=== PATIENT | male | born 1950 | race Caucasian/White ===

== ENCOUNTER 2018-02-25 14:38 | Emergency (ER) | payer MEDICARE ==
[2018-02-25] MEDS ORDERED: NovoLOG Insulin SQ ONE ×2 (15:02→17:54)
[2018-02-25] MEDS ORDERED: Sodium Chloride 0.9% 1000 ML 1,000 ML IV STA ×3 (15:02→18:53)
[2018-02-25 15:10] VITALS: PULSE 86; O2SAT 97
[2018-02-25] MEDS ORDERED: Sodium Chloride 0.9% 1000 ML 1,000 ML ONE ×3 (15:38→19:01)
[2018-02-25] MEDS ORDERED: NovoLOG Insulin ONE ×2 (15:38→17:58)
[2018-02-25 15:41] LABS: BASOPHIL % 0.3 % (0.0-0.4); Basophil (Absolute #) 0.03 (0-0.4); Eosinophil % 0.1 % (0.00-5.0); Eosinophil (Absolute #) 0.01 (0-0.5); Granulocyte Absolute (ANC) 7.29 (1.4-6.9); Granulocytes % 79.9 % (36.0-66.0); Hematocrit 51.2 % (42-50); Hemoglobin 17.2 gm/dl (12.5-18.0); Lymphocyte (Absolute #) 1.27 (1.0-4.6); Lymphocytes % 13.9 % (24.0-44.0); Mean Corpuscular Hgb Concent. 33.6 g/dl (32-36); Mean Platelet Volume 11.4 fl (6-9.5); Monocyte (Absolute #) 0.53 (0.0-1.3); Monocytes % 5.8 % (0.0-12.0); Platelet Count 195 K/mm3 (150-450); Red Blood Count 6.02 M/mm3 (4.1-5.6); White Blood Count 9.1 K/mm3 (4.0-10.5)
[2018-02-25 15:46] LABS: Mean Corpuscular Hemoglobin 28.5 pg (26-32)
[2018-02-25 15:57] LABS: A-aADO2 23; ABG POTASSIUM 4.4 (3.5-5.1); ARTERIAL BLD GAS O2 SATURATION 96.2 % (95-100); ARTERIAL BLOOD GAS BASE EXCESS 1.1 (-2.0-2.0); ARTERIAL BLOOD GAS FIO2 21 %; ARTERIAL BLOOD GAS PCO2 44 mmHg (35-45); ARTERIAL BLOOD GAS PO2 72 mmHg (75-100); ARTERIAL BLOOD GAS pH 7.39 (7.35-7.45); CARBOXYHEMOGLOBIN 3.2 % THgb (0.0-6.9); HCO3- 26.6 (22-28); HGB O2 SAT 92.2 g/dF (94-100); Lactic Acid 4.3 (0.4-2.0); paO2 pAO1 0.76
[2018-02-25 15:58] LABS: ABG SITE RIGHT BRACHIAL; ALLEN TEST OK? YES
[2018-02-25 15:59] LABS: ALBUMIN 4.1 g/dL (3.5-5.0); ALKALINE PHOSPHATASE 159 U/L (38-126); ANION GAP 17.5 MEQ/L (5-15); BLOOD UREA NITROGEN 27 mg/dL (9-20); CHLORIDE 88 mmol/L (98-107); Calcium 9.1 mg/dL (8.4-10.2); Carbon Dioxide 30 mmol/L (22-30); Creatinine 1 0.83 mg/dL (0.66-1.25); Potassium 5.2 mmol/L (3.5-5.1); SGOT/AST 36 U/L (17-59); SGPT/ALT 26 U/L (0-50); SODIUM 130 mmol/L (137-145); Total Protein 7.6 g/dL (6.3-8.2)
[2018-02-25 16:10] LABS: Glucose 540 mg/dL (74-106)
--- NOTE | 2018-02-25 16:15 | XRAY ---
Indication: Short of breath. Hyperglycemia. Smoking history. Comparison: July 03, 2016. PA/lateral chest demonstrates stable right middle lobe atelectasis/scarring. No focal infiltrate, consolidation, or large effusion. Heart is not enlarged. Bony thorax intact again with mild osteopenia and remote-appearing inferior thoracic minimal compression deformities. Impression: Stable nonacute chest with chronic features.
[2018-02-25 16:24] LABS: Appearance CLEAR (CLEAR); Bilirubin NEGATIVE (NEGATIVE); Blood SMALL Ery/ul (0-5); Glucose >=500 mg/dL (NEGATIVE); Ketones NEGATIVE (NEGATIVE); Leukocyte Esterase NEGATIVE (NEGATIVE); Nitrite NEGATIVE (NEGATIVE); Protein,Urine Dip 100 (Negative); Specific Gravity 1.018 (1.005-1.025); Urobilinogen NEGATIVE mg/dL (0-1)
--- NOTE | 2018-02-25 17:38 | ERPHSYRPT ---
<TRAN SLADE - Last Filed: 02/25/18 19:48> - History of Present Illness Source: patient Exam Limitations: no limitations Patient Subjective Stated Complaint: pt poor historian, handed nurse a list of medications but does not know what they are for. complaining of dry mouth, increased thirst. states he drank a mountain dew on the way here. no changes with urination. c/o back and leg pain but states its chronic. Triage Nursing Assessment: pt in motorized w/c, transferred self to bed. tongue appears dry, no abnormal fruity smell to breath. c/o vision is blurry and dry mouth. can't seem to get enough to drink. resp easy, lungs clear. blood sugar 587. skin pink, warm and dry. Timing/Duration: today Severity: moderate Modifying Factors: Improves With: nothing Associated Symptoms: other (As described in HPI) Hx Tetanus, Diphtheria Vaccination/Date Given: No Hx Influenza Vaccination/Date Given: Yes Hx Pneumococcal Vaccination/Date Given: Yes Immunizations Up to Date: Yes <BRANDT MATHIS - Last Filed: 04/02/18 18:58> - History of Present Illness Time Seen by Provider: 02/25/18 15:00 Physician History: Pt is a 68 y/o male with h/o DM II. He woke up this AM and checked his BG that was in the 350 range. Pt states, he had very dry mouth and had polydipsia. Pt had a mountain dew can. Pt states, his BG in the AMs is in the range of 280s. he is injecting Insulin three times daily, but does not remember if he has any basal insulin. Pt is very poor historian, and is non compliant. He states "I am doing many things that I am not suppose to". Pt denies F/C/S. No SOB or wheeze. he does have polydipsia and polyuria. (BRANDT MATHIS) Allergies/Adverse Reactions: atorvastatin calcium [From Lipitor] Adverse Reaction (Severe, Verified 02/14/15 12:40) Joint Aches Home Medications: Duloxetine HCl 30 mg [Cymbalta 30 MG Capsule] 60 mg PO DAILY 02/14/15 [ History] Furosemide [Lasix] 40 mg PO BID 02/14/15 [History] Gabapentin 400 mg [Neurontin 400 MG] 400 mg PO TID 02/14/15 [History] Glucosam/Chondr/Collagn/Hyalur [Glucosamine & Chondroitin Cap] 1 each PO DAILY 02/14/15 [History] Methadone HCl 10 mg [DOLOPHINE 10MG Tablet] 30 mg PO TID 02/14/15 [History ] Potassium Chloride 10 Meq Tab* [Klor Con 10 MEQ] 10 meq PO DAILY 02/14/15 [ History] Tamsulosin HCl 0.4 mg [Flomax 0.4 MG] 0.4 mg PO DAILY 02/14/15 [History] Insulin Aspart [NovoLOG Insulin] 1 units SQ TIDWM 02/25/18 [History] Rivaroxaban 10 mg Tablet [Xarelto 10 mg Tablet] 10 mg PO DAILY 02/25/18 [ History] - Review of Systems Constitutional: No Fever, No Chills Eyes: No Symptoms Ears, Nose, & Throat: No Symptoms Respiratory: No Cough, No Dyspnea Cardiac: No Chest Pain, No Edema, No Syncope Abdominal/Gastrointestinal: No Abdominal Pain, No Nausea, No Vomiting, No Diarrhea Genitourinary Symptoms: Frequency Musculoskeletal: No Back Pain, No Neck Pain Skin: No Rash Neurological: No Dizziness, No Focal Weakness, No Sensory Changes Endocrine: Polyuria, Polydipsia All Other Systems: Reviewed and Negative <BRANDT MATHIS - Last Filed: 04/02/18 18:58> - Past Medical History Pertinent Past Medical History: Yes Neurological History: No Pertinent History ENT History: No Pertinent History Cardiac History: No Pertinent History Respiratory History: No Pertinent History Endocrine Medical History: Diabetes Type II Musculoskeletal History: Arthritis GI Medical History: No Pertinent History History: No Pertinent History Psycho-Social History: No Pertinent History Male Reproductive Disorders: Prostate Problems - Past Surgical History Past Surgical History: Yes Neuro Surgical History: No Pertinent History Cardiac: No Pertinent History Respiratory: No Pertinent History Gastrointestinal: No Pertinent History Genitourinary: No Pertinent History Musculoskeletal: Orthopedic Surgery Male Surgical History: No Pertinent History Other Surgical History: L LEG SURGERY. R ARM SURGERY - Social History Smoking Status: Current some day smoker How long have you smoked: 43 Exposure to second hand smoke: No Drug Use: none Patient Lives Alone: No <BRANDT MATHIS - Last Filed: 04/02/18 18:58> - Physical Exam General Appearance: no apparent distress, alert, other (Pt is poor historian and somewhat confused.) Eye Exam: PERRL/EOMI, eyes nml inspection Ears, Nose, Throat Exam: normal ENT inspection, TMs normal, pharynx normal, moist mucous membranes Neck Exam: normal inspection, non-tender, supple, full range of motion Respiratory Exam: normal breath sounds, lungs clear, No respiratory distress Cardiovascular Exam: regular rate/rhythm, normal heart sounds, normal peripheral pulses Gastrointestinal/Abdomen Exam: soft, normal bowel sounds, No tenderness, No mass Back Exam: normal inspection, normal range of motion, No CVA tenderness, No vertebral tenderness Extremity Exam: normal inspection, normal range of motion, pelvis stable Neurologic Exam: alert, oriented x 3, cooperative, normal mood/affect, nml cerebellar function, nml station & gait, sensation nml, No motor deficits Skin Exam: normal color, warm, dry, No rash Lymphatic Exam: No adenopathy SpO2: 97 Oxygen Delivery: Room Air <BRANDT MATHIS - Last Filed: 04/02/18 18:58> - Nursing Vital Signs Nursing Vital Signs: Initial Vital Signs Temperature 99.5 F 02/25/18 14:39 Pulse Rate 86 02/25/18 14:39 Respiratory Rate 18 02/25/18 14:39 Blood Pressure 128/112 02/25/18 14:39 O2 Sat by Pulse Oximetry 97 02/25/18 14:39 Pain Scale Pain Intensity 0 - Course EKG Interpreted by Me: RATE (60 bpm), Sinus Rhythm, Left [place] Deviation, Other ( EKG: Sinus rhythm, 60 bpm, left axis deviation, no acute ST or T wave changes) <TRAN SLADE - Last Filed: 02/25/18 19:48> - Radiology Exams Chest X-ray Interpretation: Reviewed by me, No Pneumonia, No Pneumothorax (Stable non acute chest with chronic features) <BRANDT MATHIS - Last Filed: 04/02/18 18:58> Ordered Tests: Medication Summary Discontinued Medications Generic Name Dose Route Start Last Admin Trade Name Freq PRN Reason Stop Dose Admin Sodium Chloride 1,000 mls @ 999 mls/hr 02/25/18 15:02 02/25/18 15:41 Sodium Chloride 0.9% 1000 Ml IV 02/25/18 16:02 999 mls/hr .Q1H1M STA Administration Sodium Chloride Confirm 02/25/18 15:38 Sodium Chloride 0.9% 1000 Ml Administered 02/25/18 15:39 Dose 1,000 mls @ ud .ROUTE .STK-MED ONE Sodium Chloride Confirm 02/25/18 16:52 Sodium Chloride 0.9% 1000 Ml Administered 02/25/18 16:53 Dose 1,000 mls @ ud .ROUTE .STK-MED ONE Sodium Chloride 1,000 mls @ 999 mls/hr 02/25/18 16:57 02/25/18 16:58 Sodium Chloride 0.9% 1000 Ml IV 02/25/18 17:57 999 mls/hr .Q1H1M STA Administration Sodium Chloride 1,000 mls @ 999 mls/hr 02/25/18 18:53 02/25/18 19:02 Sodium Chloride 0.9% 1000 Ml IV 02/25/18 19:53 999 mls/hr .Q1H1M STA Administration Sodium Chloride Confirm 02/25/18 19:01 Sodium Chloride 0.9% 1000 Ml Administered 02/25/18 19:02 Dose 1,000 mls @ ud .ROUTE .STK-MED ONE Insulin Aspart 10 unit 02/25/18 15:02 02/25/18 15:41 Novolog Insulin SQ 02/25/18 15:03 10 unit STAT ONE Administration Insulin Aspart Confirm 02/25/18 15:38 Novolog Insulin Administered 02/25/18 15:39 Dose 10 unit .ROUTE .STK-MED ONE Insulin Aspart 7 unit 02/25/18 17:54 02/25/18 18:01 Novolog Insulin SQ 02/25/18 17:55 7 unit STAT ONE Administration Insulin Aspart Confirm 02/25/18 17:58 Novolog Insulin Administered 02/25/18 17:59 Dose 7 unit .ROUTE .STK-MED ONE Lab/Rad Data: Laboratory Result Diagrams 02/25/18 15:15 02/25/18 15:15 Laboratory Results 02/25/18 02/25/18 02/25/18 Range/Units 19:16 16:19 15:15 WBC (4.0-10.5) K/mm3 RBC (4.1-5.6) M/mm3 Hgb (12.5-18.0) gm/dl Hct (42-50) % MCV (78-100) fl MCH (26-32) pg MCHC (32-36) g/dl RDW (11.5-14.0) % Plt Count (150-450) K/mm3 MPV (6-9.5) fl Gran % (36.0-66.0) % Eos # (Auto) (0-0.5) Absolute Lymphs (auto) (1.0-4.6) Absolute Monos (auto) (0.0-1.3) Lymphocytes % (24.0-44.0) % Monocytes % (0.0-12.0) % Eosinophils % (0.00-5.0) % Basophils % (0.0-0.4) % Absolute Granulocytes (1.4-6.9) Basophils # (0-0.4) Puncture Site pCO2 (35-45) mmHg pO2 (75-100) mmHg Base Excess (-2.0-2.0) O2 Saturation (94-100) g/dF ABG pH (7.35-7.45) ABG HCO3 (22-28) ABG O2 Sat (Measured) (95-100) % Andres Test A-a Gradient a/A Ratio Hemoglobin Carboxyhemoglobin (0.0-6.9) % THgb Methemoglobin (1.4-1.5) % Potassium 5.2 H (3.5-5.1) Temperature C POC O2 Flow Rate % Sodium 130 L (137-145) mmol/L Chloride 88 L (98-107) mmol/L Carbon Dioxide 30 (22-30) mmol/L Anion Gap 17.5 H (5-15) MEQ/L BUN 27 H (9-20) mg/dL Creatinine 0.83 (0.66-1.25) mg/dL Estimated GFR > 60.0 ML/MIN Glucose 540 H* (74-106) mg/dL Lactic Acid 2.0 (0.4-2.0) Calcium 9.1 (8.4-10.2) mg/dL Magnesium 2.2 (1.6-2.3) mg/dL Total Bilirubin 0.80 (0.2-1.3) mg/dL AST 36 (17-59) U/L ALT 26 (0-50) U/L Alkaline Phosphatase 159 H (38-126) U/L Serum Total Protein 7.6 (6.3-8.2) g/dL Albumin 4.1 (3.5-5.0) g/dL Urine Color STRAW (YELLOW) Urine Appearance CLEAR (CLEAR) Urine pH 6.0 (5-6) Ur Specific [place] 1.018 (1.005-1.025) Urine Protein 100 (Negative) Urine Ketones NEGATIVE (NEGATIVE) Urine Blood SMALL (0-5) Sanchez/ul Urine Nitrite NEGATIVE (NEGATIVE) Urine Bilirubin NEGATIVE (NEGATIVE) Urine Urobilinogen NEGATIVE (0-1) mg/dL Ur Leukocyte Esterase NEGATIVE (NEGATIVE) Urine WBC (Auto) 0-2 (0-5) /HPF Urine RBC (Auto) NONE (0-2) /HPF U Epithel Cells (Auto) NONE SEEN (FEW) /HPF Urine Mucus (Auto) SLIGHT (NEGATIVE) /HPF Urine Culture Reflexed NO (NO) Urine Glucose >=500 (NEGATIVE) mg/dL 02/25/18 02/25/18 Range/Units 15:15 15:02 WBC 9.1 (4.0-10.5) K/mm3 RBC 6.02 H (4.1-5.6) M/mm3 Hgb 17.2 (12.5-18.0) gm/dl Hct 51.2 H (42-50) % MCV 85.0 (78-100) fl MCH 28.5 (26-32) pg MCHC 33.6 (32-36) g/dl RDW 14.0 (11.5-14.0) % Plt Count 195 (150-450) K/mm3 MPV 11.4 H (6-9.5) fl Gran % 79.9 H (36.0-66.0) % Eos # (Auto) 0.01 (0-0.5) Absolute Lymphs (auto) 1.27 (1.0-4.6) Absolute Monos (auto) 0.53 (0.0-1.3) Lymphocytes % 13.9 L (24.0-44.0) % Monocytes % 5.8 (0.0-12.0) % Eosinophils % 0.1 (0.00-5.0) % Basophils % 0.3 (0.0-0.4) % Absolute Granulocytes 7.29 H (1.4-6.9) Basophils # 0.03 (0-0.4) Puncture Site RIGHT BRACHIAL pCO2 44 (35-45) mmHg pO2 72 L (75-100) mmHg Base Excess 1.1 (-2.0-2.0) O2 Saturation 92.2 L (94-100) g/dF ABG pH 7.39 (7.35-7.45) ABG HCO3 26.6 (22-28) ABG O2 Sat (Measured) 96.2 (95-100) % Andres Test YES A-a Gradient 23 a/A Ratio 0.76 Hemoglobin 17.0 Carboxyhemoglobin 3.2 (0.0-6.9) % THgb Methemoglobin 1.0 L (1.4-1.5) % Potassium 4.4 (3.5-5.1) Temperature 37.0 C POC O2 Flow Rate 21 % Sodium (137-145) mmol/L Chloride (98-107) mmol/L Carbon Dioxide (22-30) mmol/L Anion Gap (5-15) MEQ/L BUN (9-20) mg/dL Creatinine (0.66-1.25) mg/dL Estimated GFR ML/MIN Glucose (74-106) mg/dL Lactic Acid 4.3 H (0.4-2.0) Calcium (8.4-10.2) mg/dL Magnesium (1.6-2.3) mg/dL Total Bilirubin (0.2-1.3) mg/dL AST (17-59) U/L ALT (0-50) U/L Alkaline Phosphatase (38-126) U/L Serum Total Protein (6.3-8.2) g/dL Albumin (3.5-5.0) g/dL Urine Color (YELLOW) Urine Appearance (CLEAR) Urine pH (5-6) Ur Specific [place] (1.005-1.025) Urine Protein (Negative) Urine Ketones (NEGATIVE) Urine Blood (0-5) Sanchez/ul Urine Nitrite (NEGATIVE) Urine Bilirubin (NEGATIVE) Urine Urobilinogen (0-1) mg/dL Ur Leukocyte Esterase (NEGATIVE) Urine WBC (Auto) (0-5) /HPF Urine RBC (Auto) (0-2) /HPF U Epithel Cells (Auto) (FEW) /HPF Urine Mucus (Auto) (NEGATIVE) /HPF Urine Culture Reflexed (NO) Urine Glucose (NEGATIVE) mg/dL <TRAN SLADE - Last Filed: 02/25/18 19:48> - Progress Progress: improved <BRANDT MATHIS - Last Filed: 04/02/18 18:58> - Progress Progress Note: 02/25/18 19:48 This is a 68-year-old white male with history of diabetes type 2, arthritis, prostate problems he arrives with complaints that his blood sugars are high at home Patient apparently had a blood sugar around 350 drinking Mountain Dew and arrived with a blood sugar high her than 500. Patient states he's had a dry mouth lately he had some paresthesias of bilateral forearms. He did not have any speech difficulties saw and he was moving all extremities. Past medical history as noted above diabetes type 1, arthritis, prostate problems Past surgical history includes orthopedic surgery, leg surgery and arm surgery Physical examination well-developed well-nourished white male he is alert oriented 3. Head is atraumatic normocephalic. Eyes PERRLA EOMI fundi are unremarkable. Ears TMs robbins intact bilaterally. Nose is clear. Throat is clear. Neck is supple. Lungs are clear. Heart regular rate rhythm without murmur. Abdomen soft nontender nondistended positive bowel sounds. Extremities full range of motion pulse equal symmetrical 2 over 4. Neuro patient alert oriented 3 cranial nerves II through XII are intact DTRs symmetrical 2 over [address] worker are equal and symmetrical 5 or 5. Sensation intact to all extremities. Movement intact to all extremities. GCS is 15. Labs patient's chemistry shows a sodium 1:30 potassium 5.2 glucose 88 bicarbonate 30 BUN 27 creatinine 0.83 glucose 540 Patient's initial lactate 4.3 it has decreased now to 2.0 CBC white count 9.1 hemoglobin 17.2 hematocrit 51.2 platelets 195 ABGs on arrival pH 7.39 PCO2 44 PO2 72 bicarbonate 26.6 saturation 96% Patient's chest x-ray: Stable nonacute chest with chronic features Patient's urinalysis negative ketones glucose greater than 500 specific gravity 1.018 pH 6.0 Patient has received 3 L of normal saline he has received a total of 17 him units of insulin coverage Blood sugar now to 26 patient is in no acute distress vitals are stable I have ordered an EKG on this patient which reads the sinus rhythm 60 bpm left axis deviation no acute ST or T wave changes. Patient is markedly improved blood pressures are stable patient is not ketotic. Patient's lactate is improved to 2. We'll go ahead and discharge patient. (TRAN SLADE) 02/25/18 19:04 Pt was turned over to Dr Slade. Improved, and will be d/c later. (BRANDT MATHIS) - Departure Time of Disposition: 19:54 Departure Disposition: Home Critical Care Time: No <TRAN SLADE - Last Filed: 02/25/18 19:48> <BRANDT MATHIS - Last Filed: 04/02/18 18:58> - Departure Clinical Impression: Hyperglycemia Condition: Fair Referrals: DOCTOR,NO FAMILY [Primary Care Provider] - Instructions: Hyperglycemia, Adult (DC) Additional Instructions: Return home. Monitor your blood sugars carefully tonight and continue to monitor next several days write them down. Follow-up with your family doctor. Return for acute distress or for severe symptoms.
[2018-02-25 18:55] VITALS: BP 151/81
== END 2018-02-25 20:13 | disposition home or self-care (01) ==
LOC: ED 14:38
DX: E11.65 Type 2 diabetes mellitus with hyperglycemia (principal); M19.90 Unspecified osteoarthritis, unspecified site; Z79.01 Long term (current) use of anticoagulants; Z79.899 Other long term (current) drug therapy; Z72.0 Tobacco use
CPT/HCPCS: 36000; 36415; 36600; 71046; 80053; 81001; 82375; 82803; 82962; 83605; 83735; 85025; 93005; 96360; 96361; 96372; 99285; A9270-GY

== ENCOUNTER 2019-01-29 15:43 | Emergency (ER) | payer MEDICARE ==
--- NOTE | 2019-01-29 18:45 | ERPHSYRPT ---
- History of Present Illness Time Seen by Provider: 01/29/19 18:30 Source: patient Exam Limitations: no limitations Patient Subjective Stated Complaint: pt here for pain to right hip for over 2 months now with no injury, pt has hx of chronic pain and has a pain pump. but he is currently out of hes methadone now for a week, Triage Nursing Assessment: pt alert, resp easy, skin w/d/p. pt was able to transfer from to bed without difficulty, no edema noted Physician History: 68 y/o white male with chronic right hip pain. pt has a dilaudid pain pump. pt has been out of his methadone for 4 to 5 days. pt has a pain specialist. unable to get in touch with them today. missed his last appt because he was too busy. pt denies any injury. Severity: moderate Associated Symptoms: denies symptoms, No nausea, No vomiting, No abdominal pain , No shortness of breath, No chest pain, No loss of appetite Allergies/Adverse Reactions: atorvastatin calcium [From Lipitor] Adverse Reaction (Severe, Verified 01/29/19 17:13) Joint Aches Home Medications: Duloxetine HCl 30 mg [Cymbalta 30 MG Capsule] 60 mg PO DAILY 02/14/15 [ History] Furosemide [Lasix] 40 mg PO BID 02/14/15 [History] Gabapentin 400 mg [Neurontin 400 MG] 400 mg PO TID 02/14/15 [History] Glucosam/Chondr/Collagn/Hyalur [Glucosamine & Chondroitin Cap] 1 each PO DAILY 02/14/15 [History] Methadone HCl 10 mg [DOLOPHINE 10MG Tablet] 30 mg PO TID 02/14/15 [History ] Potassium Chloride 10 Meq Tab* [Klor Con 10 MEQ] 10 meq PO DAILY 02/14/15 [ History] Tamsulosin HCl 0.4 mg [Flomax 0.4 MG] 0.4 mg PO DAILY 02/14/15 [History] Insulin Aspart [NovoLOG Insulin] 1 units SQ TIDWM 02/25/18 [History] Rivaroxaban 10 mg Tablet [Xarelto 10 mg Tablet] 10 mg PO DAILY 02/25/18 [ History] Hx Tetanus, Diphtheria Vaccination/Date Given: No Hx Influenza Vaccination/Date Given: No Hx Pneumococcal Vaccination/Date Given: Yes Immunizations Up to Date: Yes - Review of Systems Constitutional: No Symptoms Eyes: No Symptoms Ears, Nose, & Throat: No Symptoms Respiratory: No Symptoms Cardiac: No Symptoms Abdominal/Gastrointestinal: No Symptoms Genitourinary Symptoms: No Symptoms Musculoskeletal: Joint Pain (right hip) Skin: No Symptoms Neurological: No Symptoms Psychological: No Symptoms Endocrine: No Symptoms Hematologic/Lymphatic: No Symptoms Immunological/Allergic: No Symptoms All Other Systems: Reviewed and Negative - Past Medical History Pertinent Past Medical History: Yes Neurological History: No Pertinent History ENT History: No Pertinent History Cardiac History: No Pertinent History Respiratory History: No Pertinent History Endocrine Medical History: Diabetes Type II Musculoskeletal History: Arthritis, Degenerative Disk Disease GI Medical History: No Pertinent History History: No Pertinent History Psycho-Social History: No Pertinent History Male Reproductive Disorders: Prostate Problems Other Medical History: chronic pain with pain pump of dilaudid - Past Surgical History Past Surgical History: Yes Neuro Surgical History: No Pertinent History Cardiac: No Pertinent History Respiratory: No Pertinent History Gastrointestinal: No Pertinent History Genitourinary: No Pertinent History Musculoskeletal: Orthopedic Surgery Male Surgical History: No Pertinent History Other Surgical History: L LEG SURGERY. R ARM SURGERY - Social History Smoking Status: Current some day smoker How long have you smoked: 43 Exposure to second hand smoke: Yes Drug Use: none Patient Lives Alone: Yes - Nursing Vital Signs Nursing Vital Signs: Initial Vital Signs Temperature 97.9 F 01/29/19 17:06 Pulse Rate 78 01/29/19 17:06 Respiratory Rate 18 01/29/19 17:06 Blood Pressure 122/70 01/29/19 17:06 O2 Sat by Pulse Oximetry 98 01/29/19 17:06 Pain Scale Pain Intensity 10 - Physical Exam General Appearance: no apparent distress, alert, anxiety Eye Exam: PERRL/EOMI, eyes nml inspection Ears, Nose, Throat Exam: normal ENT inspection, moist mucous membranes Neck Exam: normal inspection, non-tender, supple, full range of motion Respiratory Exam: lungs clear, airway intact, No chest tenderness, No respiratory distress Gastrointestinal/Abdomen Exam: No tenderness Rectal Exam: not done Back Exam: normal inspection, No CVA tenderness, No vertebral tenderness Extremity Exam: normal inspection, normal range of motion, pelvis stable, tenderness (tenderness right hip) Neurologic Exam: alert, oriented x 3, cooperative, oncologist II-XII nml as tested Skin Exam: normal color, warm, dry Lymphatic Exam: No adenopathy SpO2 Interpretation: normal SpO2: 95 O2 Delivery: Room Air - Course Nursing assessment & vital signs reviewed: Yes Ordered Tests: Medication Summary Discontinued Medications Generic Name Dose Route Start Last Admin Trade Name Priscilla PRN Reason Stop Dose Admin Hydromorphone HCl 1 mg 01/29/19 18:46 01/29/19 19:00 Hydromorphone 1 Mg/Ml Ampule IM 01/29/19 18:47 1 mg STAT ONE Administration Hydromorphone HCl Confirm 01/29/19 18:56 Hydromorphone 1 Mg/Ml Ampule Administered 01/29/19 18:57 Dose 1 mg .ROUTE .STK-MED ONE Promethazine HCl 25 mg 01/29/19 18:46 01/29/19 19:01 Phenergan 25 Mg Inj IM 01/29/19 18:47 25 mg STAT ONE Administration Promethazine HCl Confirm 01/29/19 18:56 Phenergan 25 Mg Inj Administered 01/29/19 18:57 Dose 25 mg .ROUTE .STK-MED ONE - Progress Progress: unchanged Counseled pt/family regarding: diagnosis, need for follow-up - Departure Departure Disposition: Home Clinical Impression: Chronic hip pain, Has run out of medications Condition: Stable Critical Care Time: No Referrals: RIGOBERTO RUIZ [Primary Care Provider] - Additional Instructions: call your primary doctor and your pain specialist for further management
[2019-01-29] MEDS ORDERED: Phenergan 25 MG INJ IM ONE (18:46)
[2019-01-29] MEDS ORDERED: Hydromorphone 1 mg/ml Ampule IM ONE (18:46)
[2019-01-29] MEDS ORDERED: Hydromorphone 1 mg/ml Ampule ONE (18:56)
[2019-01-29] MEDS ORDERED: Phenergan 25 MG INJ ONE (18:56)
[2019-01-29 19:36] VITALS: BP 153/76; PULSE 64; O2SAT 98
== END 2019-01-29 19:36 | disposition home or self-care (01) ==
LOC: ED 15:43
DX: Z79.899 Other long term (current) drug therapy (principal); E11.9 Type 2 diabetes mellitus without complications; M19.90 Unspecified osteoarthritis, unspecified site; Z76.0 Encounter for issue of repeat prescription
CPT/HCPCS: 96372; 99284; J1170; J2550

== ENCOUNTER 2019-02-16 09:33 | Emergency (ER) | payer MEDICARE ==
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
[2019-02-16 10:25] VITALS: BP 99/50; PULSE 60; O2SAT 98
== END 2019-02-16 10:48 | disposition home or self-care (01) ==
LOC: ED 09:33
DX: S81.802A Unspecified open wound, left lower leg, initial encounter (principal); S81.801A Unspecified open wound, right lower leg, initial encounter; E11.9 Type 2 diabetes mellitus without complications; Z79.899 Other long term (current) drug therapy
CPT/HCPCS: 93922; 99283

== ENCOUNTER 2019-05-13 15:57 | Emergency (ER) | payer MEDICARE ==
--- NOTE | 2019-05-13 17:16 | ERPHSYRPT ---
- History of Present Illness Time Seen by Provider: 05/13/19 16:43 Source: patient Exam Limitations: no limitations Patient Subjective Stated Complaint: Pt was sent over by Dr. Ruiz, pt has been feeling sick for the past 4 days, fever and chills, no energy, excessive urination Triage Nursing Assessment: Pt arrived in the ER in his electric wheelchair, hypertensive, lungs clear, last bowel movement yesterday, last intake this morning, rates pain 8/10 (chronic back pain), missed his appt to fill up his pain pump due to being sick, Physician History: 69 years old male with history of hypertension, hyperlipidemia, diabetes mellitus, chronic pain syndrome with back pain/leg pain having pain pump, right lower extremity vascular disease with right lower leg ulcer for a few months presented in the ER with chief complaint of flulike symptoms for the last 4 days with low-grade fever and chills. He feels weak and tired with no energy to do his routine activities. He has loss of appetite. He's been feeling thirsty all the time and urinating a lot more than usual. Blood sugar has been staying high in the 300s. Patient has been feeling sick and this does be an appointment to fill his pain pump. Patient has difficulty in ambulation at his baseline and is wheelchair-bound. Denies any chest pain palpitations or has shortness of breath at times. No abdominal pain,, vomiting but has nausea. vancomycin Timing/Duration: day(s) (4), gradual onset, worse Severity: moderate Modifying Factors: Improves With: nothing Associated Symptoms: chills, fever, loss of appetite, malaise Allergies/Adverse Reactions: atorvastatin calcium [From Lipitor] Adverse Reaction (Severe, Verified 05/13/19 16:19) Joint Aches Home Medications: Duloxetine HCl 30 mg [Cymbalta 30 MG Capsule] 60 mg PO DAILY 02/14/15 [ History] Furosemide [Lasix] 40 mg PO BID 02/14/15 [History] Gabapentin 400 mg [Neurontin 400 MG] 400 mg PO TID 02/14/15 [History] Glucosam/Chondr/Collagn/Hyalur [Glucosamine & Chondroitin Cap] 1 each PO DAILY 02/14/15 [History] Potassium Chloride 10 Meq Tab* [Klor Con 10 MEQ] 10 meq PO DAILY 10/19/15 [ History] Tamsulosin HCl 0.4 mg [Flomax 0.4 MG] 0.4 mg PO DAILY 02/14/15 [History] Insulin Aspart [NovoLOG Insulin] 1 units SQ TIDWM 02/25/18 [History] Rivaroxaban 10 mg Tablet [Xarelto 10 mg Tablet] 10 mg PO DAILY 02/25/18 [ History] Hx Tetanus, Diphtheria Vaccination/Date Given: No Hx Influenza Vaccination/Date Given: No Hx Pneumococcal Vaccination/Date Given: Yes - Review of Systems Constitutional: Fever, Chills, Fatigue, Malaise, Weakness Eyes: No Symptoms Ears, Nose, & Throat: Throat Pain Respiratory: Cough Cardiac: No Symptoms Abdominal/Gastrointestinal: No Symptoms Genitourinary Symptoms: Frequency Musculoskeletal: Arthralgias, Back Pain, Joint Pain, Myalgias Skin: Rash, Other (ulcer leg) Neurological: Parasthesia, Sensory Changes, No Focal Weakness Psychological: No Symptoms Endocrine: No Symptoms Hematologic/Lymphatic: No Symptoms Immunological/Allergic: No Symptoms - Past Medical History Pertinent Past Medical History: Yes Neurological History: No Pertinent History ENT History: No Pertinent History Cardiac History: No Pertinent History Respiratory History: No Pertinent History Endocrine Medical History: Diabetes Type II Musculoskeletal History: Arthritis, Degenerative Disk Disease GI Medical History: No Pertinent History History: No Pertinent History Psycho-Social History: No Pertinent History Male Reproductive Disorders: Prostate Problems Other Medical History: chronic pain with pain pump of dilaudid - Past Surgical History Past Surgical History: Yes Neuro Surgical History: No Pertinent History Cardiac: No Pertinent History Respiratory: No Pertinent History Gastrointestinal: No Pertinent History Genitourinary: No Pertinent History Musculoskeletal: Orthopedic Surgery Male Surgical History: No Pertinent History Other Surgical History: L LEG SURGERY. R ARM SURGERY - Social History Smoking Status: Current every day smoker How long have you smoked: 43 Exposure to second hand smoke: Yes Drug Use: none Patient Lives Alone: Yes - Nursing Vital Signs Nursing Vital Signs: Initial Vital Signs Temperature 98.6 F 05/13/19 16:03 Pulse Rate 96 H 05/13/19 16:03 Blood Pressure 151/78 05/13/19 16:03 O2 Sat by Pulse Oximetry 94 L 05/13/19 16:03 Pain Scale Pain Intensity 7 - Physical Exam General Appearance: no apparent distress Eye Exam: PERRL/EOMI, eyes nml inspection Ears, Nose, Throat Exam: normal ENT inspection, pharyngeal erythema, tonsillar exudate Neck Exam: normal inspection, non-tender, supple, full range of motion Respiratory Exam: normal breath sounds, lungs clear, No chest tenderness Cardiovascular Exam: regular rate/rhythm, normal heart sounds Gastrointestinal/Abdomen Exam: soft, normal bowel sounds, No tenderness, No distention Back Exam: normal inspection, decreased range of motion, muscle spasm, point tenderness Extremity Exam: pelvis stable, parasthesia, limited range of motion, swelling, tenderness, other, No normal range of motion Neurologic Exam: alert, oriented x 3, cooperative, wire galvanizer II-XII nml as tested, No sensation nml Skin Exam: other ([id number] area of multiple deep ulcer with sloughing and erythema around with foul smelling. Swollen foot warm and tender to touch. Capillary refill greater than 3 seconds.) SpO2 Interpretation: normal SpO2: 94 O2 Delivery: Room Air - Course Nursing assessment & vital signs reviewed: Yes Ordered Tests: Active Orders 24 hr Category Date Time Status IV Insertion STAT Care 05/13/19 17:08 Active CHEST 1 VIEW (PORTABLE) Stat Exams 05/13/19 17:09 Taken BLOOD CULTURE Stat Lab 05/13/19 17:33 Received CBC W DIFF Stat Lab 05/13/19 17:33 Completed CMP Stat Lab 05/13/19 17:33 Completed LIPASE Stat Lab 05/13/19 17:33 Completed Lactic Acid Stat Lab 05/13/19 17:16 Results Manual Differential NC Stat Lab 05/13/19 17:33 Completed UA W/RFX UR CULTURE Stat Lab 05/13/19 17:09 Uncollected VENOUS BLOOD GAS Stat Lab 05/13/19 17:16 Completed Medication Summary Generic Name Dose Route Start Last Admin Trade Name Freq PRN Reason Stop Dose Admin Vancomycin HCl 250 mls @ 250 mls/hr 05/13/19 18:15 Vancomycin 1gm/ Ns 250ml IV 05/13/19 20:14 Q1H TITO Discontinued Medications Generic Name Dose Route Start Last Admin Trade Name Freq PRN Reason Stop Dose Admin Piperacillin Sod/Tazobactam Sod 3.375 gm in 100 mls @ 200 mls/hr 05/13/19 18: 12 Zosyn 3.375gm/100 Ml D5w IV 05/13/19 18:41 STAT STA Lab/Rad Data: Laboratory Result Diagrams 05/13/19 17:33 05/13/19 17:33 Laboratory Results 05/13/19 05/13/19 05/13/19 Range/Units 17:33 17:33 17:16 WBC 12.3 H (4.0-10.5) K/mm3 RBC 4.56 (4.1-5.6) M/mm3 Hgb 13.2 (12.5-18.0) gm/dl Hct 40.0 L (42-50) % MCV 87.7 (78-100) fl MCH 28.9 (26-32) pg MCHC 33.0 (32-36) g/dl RDW 14.8 H (11.5-14.0) % Plt Count 263 (150-450) K/mm3 MPV 11.0 (7.5-11.0) fl pO2/FiO2 Ratio 21.0 % VBG pH 7.37 (7.32-7.42) VBG pCO2 at Pat Temp 58 H (42-55) mm/Hg VBG pO2 at Pat Temp 30 (25-40) mm/Hg VBG HCO3 33.5 H* (22-28) meq/L VBG O2 Sat (Antoine) 55.2 L (95-100) VBG Base Excess 6.4 H (-2.0-2.0) VBG Hemoglobin 14.3 VBG Carboxyhemoglobin 3.4 (0.0-6.9) % T HGB POC Potassium 4.2 (3.5-5.1) Sodium 132 L (137-145) mmol/L Potassium 3.9 (3.5-5.1) mmol/L Chloride 89 L (98-107) mmol/L Carbon Dioxide 31 H (22-30) mmol/L Anion Gap 14.9 (5-15) MEQ/L BUN 19 (9-20) mg/dL Creatinine 0.87 (0.66-1.25) mg/dL Estimated GFR > 60.0 ML/MIN Glucose 340 H (74-106) mg/dL Lactic Acid (0.4-2.0) Calcium 8.1 L (8.4-10.2) mg/dL Total Bilirubin 1.00 (0.2-1.3) mg/dL AST 64 H (17-59) U/L ALT 59 H (0-50) U/L Alkaline Phosphatase 200 H (38-126) U/L Serum Total Protein 6.5 (6.3-8.2) g/dL Albumin 3.1 L (3.5-5.0) g/dL Lipase 24 (23-300) U/L 05/13/19 Range/Units 17:16 WBC (4.0-10.5) K/mm3 RBC (4.1-5.6) M/mm3 Hgb (12.5-18.0) gm/dl Hct (42-50) % MCV (78-100) fl MCH (26-32) pg MCHC (32-36) g/dl RDW (11.5-14.0) % Plt Count (150-450) K/mm3 MPV (7.5-11.0) fl pO2/FiO2 Ratio % VBG pH (7.32-7.42) VBG pCO2 at Pat Temp (42-55) mm/Hg VBG pO2 at Pat Temp (25-40) mm/Hg VBG HCO3 (22-28) meq/L VBG O2 Sat (Antoine) (95-100) VBG Base Excess (-2.0-2.0) VBG Hemoglobin VBG Carboxyhemoglobin (0.0-6.9) % T HGB POC Potassium (3.5-5.1) Sodium (137-145) mmol/L Potassium (3.5-5.1) mmol/L Chloride (98-107) mmol/L Carbon Dioxide (22-30) mmol/L Anion Gap (5-15) MEQ/L BUN (9-20) mg/dL Creatinine (0.66-1.25) mg/dL Estimated GFR ML/MIN Glucose (74-106) mg/dL Lactic Acid 2.3 H (0.4-2.0) Calcium (8.4-10.2) mg/dL Total Bilirubin (0.2-1.3) mg/dL AST (17-59) U/L ALT (0-50) U/L Alkaline Phosphatase (38-126) U/L Serum Total Protein (6.3-8.2) g/dL Albumin (3.5-5.0) g/dL Lipase (23-300) U/L - Progress Progress: pain not gone completely, re-examined Progress Note: 69 he is always evaluated for4 days history of fever chills and generalized weakness. He has mildly elevated white count with a lactate of 2.3. Chest x- ray did not show any acute findings.would've blood sugar in 340s but not in DKA. He is given insulin. I believe patient is having sepsis from left lower extremity cellulitis from ulcer. Patient does need inpatient admission with IV antibiotics. Since we do not have any beds , discussed with Dr. Helton at [facility] and patient is accepted for ttransfer. Plan discussed with patient understanding these with it. 05/13/19 18:44 Counseled pt/family regarding: lab results, diagnosis, need for follow-up, rad results, smoking cessation - Departure Departure Disposition: Transfer Clinical Impression: Hyperglycemia Sepsis Qualifiers: Sepsis type: sepsis due to unspecified organism Sepsis acute organ dysfunction status: unspecified Qualified Code(s): A41.9 - Sepsis, unspecified organism Cellulitis of lower extremity Qualifiers: Laterality: right Qualified Code(s): L03.115 - Cellulitis of right lower limb Leg ulcer Qualifiers: Laterality: right Non-pressure ulcer stage: with muscle involvement without evidence of necrosis Qualified Code(s): L97.915 - Non-pressure chronic ulcer of unspecified part of right lower leg with muscle involvement without evidence of necrosis Condition: Stable Critical Care Time: No Referrals: RIGOBERTO RUIZ [Primary Care Provider] -
[2019-05-13 17:19] LABS: Lactic Acid 2.3 (0.4-2.0)
[2019-05-13 17:20] LABS: VBG BASE EXCESS 6.4 (-2.0-2.0); VBG CARBOXYHEMOGLOBIN 3.4 % T HGB (0.0-6.9); VBG HCO3- 33.5 meq/L (22-28); VBG HEMOGLOBIN 14.3; VBG O2 SATURATION 55.2 (95-100); VBG POTASSIUM 4.2 (3.5-5.1); VBG pH 7.37 (7.32-7.42)
[2019-05-13 17:33] LABS: Hemoglobin 13.2 gm/dl (12.5-18.0); Mean Cell Volume 87.7 fl (78-100); Mean Corpuscular Hemoglobin 28.9 pg (26-32); Platelet Count 263 K/mm3 (150-450); Red Blood Count 4.56 M/mm3 (4.1-5.6); Red Cell Distribution Width 14.8 % (11.5-14.0); White Blood Count 12.3 K/mm3 (4.0-10.5)
[2019-05-13 17:58] LABS: ALBUMIN 3.1 g/dL (3.5-5.0); ALKALINE PHOSPHATASE 200 U/L (38-126); ANION GAP 14.9 MEQ/L (5-15); BLOOD UREA NITROGEN 19 mg/dL (9-20); CHLORIDE 89 mmol/L (98-107); Calcium 8.1 mg/dL (8.4-10.2); Carbon Dioxide 31 mmol/L (22-30); Creatinine 1 0.87 mg/dL (0.66-1.25); Glucose 340 mg/dL (74-106); LIPASE 24 U/L (23-300); Potassium 3.9 mmol/L (3.5-5.1); SGOT/AST 64 U/L (17-59); SGPT/ALT 59 U/L (0-50); SODIUM 132 mmol/L (137-145); Total Protein 6.5 g/dL (6.3-8.2)
[2019-05-13] MEDS ORDERED: Zosyn 3.375GM/100 Ml D5W 3.375 GM/100 ML IVPB IV STA (18:12)
[2019-05-13] MEDS ORDERED: Vancomycin 1GM/ Ns 250ML*** 250 ML IV SCH (18:15)
[2019-05-13] MEDS ORDERED: NovoLOG Insulin IV ONE (18:42)
[2019-05-13 18:43] LABS: Eosinophil 1 % (0.00-3.0); Lymphocytes 11 % (24-44); Monocyte 5 % (0.0-12.0); Neutrophils 83 % (36.-66.); Platelet Estimate NORMAL (NORMAL); Total Cells Counted 100
[2019-05-13] MEDS ORDERED: Zosyn 3.375GM/100 Ml D5W 3.375 GM/100 ML IVPB IV ONE (18:45)
[2019-05-13] MEDS ORDERED: NovoLOG Insulin ONE (19:04)
[2019-05-13] MEDS ORDERED: Vancomycin 1GM/ Ns 250ML*** 250 ML IV ONE (19:16)
[2019-05-13 19:20] VITALS: BP 123/85; PULSE 109; O2SAT 95
[2019-05-13 19:43] LABS: INFLUENZA A NEGATIVE (NEGATIVE); INFLUENZA B NEGATIVE (NEGATIVE); RESPIRATORY SYNCTIAL VIRUS NEGATIVE (Negative)
--- NOTE | 2019-05-14 08:41 | XRAY ---
Indication: Fever and weakness. Comparison: February 25, 2018. Portable apical lordotic chest is less inflated and clear with incidental bilateral nipple shadows. Heart is not enlarged. Bony thorax intact again with mild osteopenia and degenerative changes. Impression: Nonacute underinflated chest with chronic features.
== END 2019-05-13 19:38 | disposition short-term general hospital (02) ==
LOC: ED 15:57
DX: E11.65 Type 2 diabetes mellitus with hyperglycemia (principal); A41.9 Sepsis, unspecified organism; L03.115 Cellulitis of right lower limb; L97.915 Non-pressure chronic ulcer of unspecified part of right lower leg with muscle involvement without evidence of necrosis
CPT/HCPCS: 36000; 36415; 71045; 80053; 82805; 82962; 83605; 83690; 85025; 87040; 87631; 96365; 96367; 96374; 99285; J2543; J3370; A9270-GY

== ENCOUNTER 2019-07-01 11:59 | Emergency (ER) | payer MEDICARE ==
--- NOTE | 2019-07-01 12:14 | ERPHSYRPT ---
- History of Present Illness Time Seen by Provider: 07/01/19 12:11 Source: patient Exam Limitations: no limitations Physician History: Patient is a 69-year-old male with a past medical history significant for diabetes mellitus, peripheral vascular disease, venous stasis ulcers with osteomyelitis of the right lower extremity/foot for which he currently has a PICC line and is receiving outpatient ceftriaxone infusions daily presents with a chief complaint of an irregular heartbeat. The patient's home health nurse visited the patient today to perform an evaluation and noted that his heartbeat seem to be irregular. She became concerned that he may be suffering from PVCs and called an ambulance to have the patient transported to the hospital, specifically the emergency department for further evaluation and management. The patient refused an ambulance ride/transportation. The home health nurse did attempt to contact the patient's primary care provider , Dr. Ruiz, but was unable to get a hold of Dr. Ruiz and was instructed by the clinic staff to have the patient come to the emergency department for further evaluation and management. The patient was noted to have PACs on telemetry in addition to his EKG on arrival. I inquired about caffeine use and he endorsed drinking diet Pepsi regularly in addition to a can of Monster almost daily. Associated Symptoms: No nausea, No vomiting, No abdominal pain, No shortness of breath, No cough, No chest pain, No headaches, No rash Allergies/Adverse Reactions: atorvastatin calcium [From Lipitor] Adverse Reaction (Severe, Verified 07/01/19 12:16) Joint Aches Home Medications: Duloxetine HCl 30 mg [Cymbalta 30 MG Capsule] 60 mg PO DAILY 02/14/15 [ History] Furosemide [Lasix] 40 mg PO BID 02/14/15 [History] Gabapentin 400 mg [Neurontin 400 MG] 400 mg PO TID 02/14/15 [History] Glucosam/Chondr/Collagn/Hyalur [Glucosamine & Chondroitin Cap] 1 each PO DAILY 02/14/15 [History] Potassium Chloride 10 Meq Tab* [Klor Con 10 MEQ] 10 meq PO DAILY 02/14/15 [ History] Tamsulosin HCl 0.4 mg [Flomax 0.4 MG] 0.4 mg PO DAILY 02/14/15 [History] Insulin Aspart [NovoLOG Insulin] 1 units SQ TIDWM 02/25/18 [History] Hx Tetanus, Diphtheria Vaccination/Date Given: No Hx Influenza Vaccination/Date Given: No Hx Pneumococcal Vaccination/Date Given: Yes - Review of Systems Constitutional: No Fever, No Chills Eyes: No Symptoms Ears, Nose, & Throat: No Symptoms Respiratory: No Cough, No Cyanosis, No Dyspnea, No Dyspnea on Exertion ([place]), No Stridor Cardiac: No Chest Pain, No Palpitations, No Syncope, No Orthopnea, No PND Abdominal/Gastrointestinal: No Abdominal Pain, No Nausea, No Vomiting, No Diarrhea Genitourinary Symptoms: No Symptoms Musculoskeletal: No Symptoms Skin: Other (Chronic wound noted to right foot and leg), No Rash Neurological: No Headache - Past Medical History Pertinent Past Medical History: Yes Neurological History: No Pertinent History ENT History: No Pertinent History Cardiac History: No Pertinent History Respiratory History: No Pertinent History Endocrine Medical History: Diabetes Type II Musculoskeletal History: Arthritis, Degenerative Disk Disease GI Medical History: No Pertinent History History: No Pertinent History Psycho-Social History: No Pertinent History Male Reproductive Disorders: Prostate Problems Other Medical History: chronic pain with pain pump of dilaudid - Past Surgical History Past Surgical History: Yes Neuro Surgical History: No Pertinent History Cardiac: No Pertinent History Respiratory: No Pertinent History Gastrointestinal: No Pertinent History Genitourinary: No Pertinent History Musculoskeletal: Orthopedic Surgery Male Surgical History: No Pertinent History Other Surgical History: L LEG SURGERY. R ARM SURGERY - Social History Smoking Status: Current every day smoker How long have you smoked: 43 Exposure to second hand smoke: Yes Drug Use: none Patient Lives Alone: Yes - Nursing Vital Signs Nursing Vital Signs: Initial Vital Signs Temperature 98.7 F 07/01/19 12:07 Pulse Rate 74 07/01/19 12:07 Respiratory Rate 18 07/01/19 12:07 Blood Pressure 139/77 07/01/19 12:07 O2 Sat by Pulse Oximetry 94 L 07/01/19 12:07 Pain Scale Pain Intensity 0 - Physical Exam General Appearance: no apparent distress, alert Eye Exam: PERRL/EOMI, No scleral icterus, No pale conjunctivae, No EOM palsy/ anisocoria Ears, Nose, Throat Exam: normal ENT inspection, pharynx normal, moist mucous membranes, No pharyngeal erythema, No tonsillar exudate Neck Exam: normal inspection, No supple Respiratory Exam: normal breath sounds, lungs clear, airway intact, No chest tenderness, No respiratory distress, No diminished breath sounds, No accessory muscle use Cardiovascular Exam: regular rate/rhythm, normal heart sounds, capillary refill <2 sec, No murmur, No friction rub, No gallop, No tachycardia Gastrointestinal/Abdomen Exam: soft, No tenderness, No distention, No mass, No guarding Rectal Exam: deferred Back Exam: normal inspection Neurologic Exam: alert, oriented x 3, cooperative, normal mood/affect Skin Exam: normal color, warm, dry, No petechiae, No jaundice SpO2 Interpretation: normal O2 Delivery: Room Air - Course Nursing assessment & vital signs reviewed: Yes EKG Interpreted by Me: RATE, Sinus Rhythm, Left [place] Deviation, NORMAL INTERVALS , NORMAL QRS, Other (Sinus rhythm with PACs that appear to be in couplets but also with artifact noted. Ventricular rate 90 bpmPR interval 153 msQRS duration 106 ms, QT/QTc 383/459, no evidence of acute myocardial ischemia or injury with the exception of the PACs his EKG appears to be unremarkable compared to an EKG dated July 15, 2018) - Radiology Exams Chest X-ray Interpretation: Reviewed by me (Underinflated access to any cardiopulmonary structures with new mild left base infiltrate/atelectasis/ effusion and left arm PICC line with tip projecting over the SVC. Remaining heart lungs are unremarkable) - CT Exams Chest CT Interpretation: Other (Small distal PE in right lobe of lung) Ordered Tests: Active Orders 24 hr Category Date Time Status First Aid Officer STAT Care 07/01/19 12:13 Active EKG-ER Only STAT Care 07/01/19 12:12 Active CHEST 2 VIEWS (PA AND LAT) Stat Exams 07/01/19 12:12 Completed CHEST WITH CONTRAST [CT] Stat Exams 07/01/19 13:21 Completed BMP Stat Lab 07/01/19 12:45 Completed CBC W DIFF Stat Lab 07/01/19 12:45 Completed MAGNESIUM Stat Lab 07/01/19 12:45 Completed PHOSPHOROUS Stat Lab 07/01/19 12:45 Completed TROPONIN Stat Lab 07/01/19 12:45 Completed TSH, 3RD Generation Stat Lab 07/01/19 12:45 Completed Medication Summary Discontinued Medications Generic Name Dose Route Start Last Admin Trade Name Freq PRN Reason Stop Dose Admin Heparin Sodium (Beef Lung) 500 units 07/01/19 14:09 07/01/19 15:19 Heparin Lock Flush 100 Units/Ml 5ml Syringe PICC 07/01/19 14:10 500 units STAT ONE Administration Heparin Sodium (Beef Lung) Confirm 07/01/19 15:14 Heparin Lock Flush 100 Units/Ml 5ml Syringe Administered 07/01/19 15:15 Dose 500 units .ROUTE .STK-MED ONE Rivaroxaban 15 mg 07/01/19 15:13 07/01/19 15:19 Xarelto 10 Mg Tablet PO 07/01/19 15:14 15 mg ONCE STA Administration Lab/Rad Data: Laboratory Result Diagrams 07/01/19 12:45 07/01/19 12:45 Laboratory Results 07/01/19 07/01/19 Range/Units 12:45 12:45 WBC 7.6 (4.0-10.5) K/mm3 RBC 4.20 (4.1-5.6) M/mm3 Hgb 12.1 L (12.5-18.0) gm/dl Hct 37.7 L (42-50) % MCV 89.8 (78-100) fl MCH 28.8 (26-32) pg MCHC 32.1 (32-36) g/dl RDW 15.1 H (11.5-14.0) % Plt Count 149 L (150-450) K/mm3 MPV 10.4 (7.5-11.0) fl Gran % 66.2 H (36.0-66.0) % Eos # (Auto) 0.24 (0-0.5) Absolute Lymphs (auto) 1.88 (1.0-4.6) Absolute Monos (auto) 0.42 (0.0-1.3) Lymphocytes % 24.9 (24.0-44.0) % Monocytes % 5.6 (0.0-12.0) % Eosinophils % 3.2 (0.00-5.0) % Basophils % 0.1 (0.0-0.4) % Absolute Granulocytes 5.01 (1.4-6.9) Basophils # 0.01 (0-0.4) Sodium 137 (137-145) mmol/L Potassium 4.1 (3.5-5.1) mmol/L Chloride 99 (98-107) mmol/L Carbon Dioxide 36 H (22-30) mmol/L Anion Gap 6.6 (5-15) MEQ/L BUN 23 H (9-20) mg/dL Creatinine 0.78 (0.66-1.25) mg/dL Estimated GFR > 60.0 ML/MIN Glucose 179 H (74-106) mg/dL Calcium 8.8 (8.4-10.2) mg/dL Phosphorus 4.3 (2.5-4.5) mg/dL Magnesium 1.8 (1.6-2.3) mg/dL Troponin I < 0.012 (0.000-0.034) ng/mL TSH 3rd Generation 0.966 (0.47-4.68) mIU/L - Progress Progress: unchanged Progress Note: 07/01/19 15:02 I reviewed the patient CT scan report which was noted that he had a right subsegmental nonoccluding PE. The patient is currently asymptomatic at this time with no hypoxia, hypotension and negative cardiac markers. Taken 10 mg of Xarelto for his peripheral vascular disease and I believe going up to 20 mg daily will suffice for anticoagulation but will need guidance from he hematology in terms of how to bridge his therapy given that the initial starting dose is 15 mg twice daily for the first 21 days and then 20 mg daily thereafter. I also spoke to afterwards, his primary care provider, and informed her of his work-up findings here in the emergency department today. She agreed to follow- up with the patient as an outpatient and I informed her I would seek guidance in terms of increasing his rivaroxaban given that he now has a pulmonary embolism. 07/01/19 15:28 Heme-onc is unavailable but I spoke to the hospital pharmacist who recommended starting the patient on rivaroxaban 15 mg twice a day for the first 21 days and then 20 mg daily thereafter. 07/02/19 09:44 Nontoxic in appearance. No complaint of dyspnea or CP. No hypoxia and stable VS. Workup relatively benign except incidental PE found on CT. Patient already taking rivaroxaban and will increase dose according to pharmacy recommendation. Seem appropriate for OP treatment given lack of symptoms at this time. Discussed with : Barbra Counseled pt/family regarding: lab results, diagnosis, need for follow-up, rad results - Departure Departure Disposition: Home, In-patient Admission Clinical Impression: Premature atrial beats, Pulmonary embolism Condition: Stable Critical Care Time: No Referrals: RIGOBERTO RUIZ [Primary Care Provider] - Instructions: Arrhythmias (DC), Pulmonary Embolism (Blood Clot in the Lungs) ( DC) Additional Instructions: Please take 15 mg of rivaroxaban morning and night for the first 21 days. Please take this medication with food. After 21 days then take 20 mg of rivaroxaban daily with food. Please follow-up with your primary care provider as scheduled. Please stop taking the 10 mg rivaroxaban tablets. Please contact your primary care provider to schedule an appointment to be seen in one week. Prescriptions: Rivaroxaban [Xarelto] 15 mg PO BID 21 Days #42 tablet Rivaroxaban [Xarelto] 20 mg PO DAILY #30 tablet
[2019-07-01 13:01] LABS: Absolute Neutrophil Ct (ANC) 5.01 (1.4-6.9); BASOPHIL % 0.1 % (0.0-0.4); Basophil (Absolute #) 0.01 (0-0.4); Eosinophil % 3.2 % (0.00-5.0); Eosinophil (Absolute #) 0.24 (0-0.5); Hematocrit 37.7 % (42-50); Hemoglobin 12.1 gm/dl (12.5-18.0); Lymphocyte (Absolute #) 1.88 (1.0-4.6); Lymphocytes % 24.9 % (24.0-44.0); Mean Cell Volume 89.8 fl (78-100); Mean Corpuscular Hemoglobin 28.8 pg (26-32); Mean Corpuscular Hgb Concent. 32.1 g/dl (32-36); Mean Platelet Volume 10.4 fl (7.5-11.0); Monocyte (Absolute #) 0.42 (0.0-1.3); Monocytes % 5.6 % (0.0-12.0); Neutrophil % 66.2 % (36.0-66.0); Platelet Count 149 K/mm3 (150-450); Red Cell Distribution Width 15.1 % (11.5-14.0); White Blood Count 7.6 K/mm3 (4.0-10.5)
--- NOTE | 2019-07-01 13:01 | XRAY ---
Indication: High blood pressure. Cardiomegaly, effusion, pneumonia, and PICC line. Comparison: May 13, 2019. AP/lateral chest obtained on [facility] again underinflated accentuating cardiopulmonary structures with new mild left base infiltrate/atelectasis/effusion and left arm PICC line with tip projecting over the SVC. Remaining heart and lungs unremarkable.
[2019-07-01 13:52] LABS: ANION GAP 6.6 MEQ/L (5-15); BLOOD UREA NITROGEN 23 mg/dL (9-20); CHLORIDE 99 mmol/L (98-107); Calcium 8.8 mg/dL (8.4-10.2); Carbon Dioxide 36 mmol/L (22-30); Creatinine 1 0.78 mg/dL (0.66-1.25); Glucose 179 mg/dL (74-106); MAGNESIUM 1.8 mg/dL (1.6-2.3); PHOSPHOROUS 4.3 mg/dL (2.5-4.5); Potassium 4.1 mmol/L (3.5-5.1); SODIUM 137 mmol/L (137-145); TROPONIN < 0.012 ng/mL (0.000-0.034); TSH, 3RD Generation 0.966 mIU/L (0.47-4.68)
--- NOTE | 2019-07-01 14:28 | XRAY ---
Indication: "Abnormal heartbeat.". Multiple contiguous axial images obtained through the chest using 80 cc Isovue 370 contrast and PE protocol. Comparison: None There is good opacification of the pulmonary arteries to include the lobar and segmental branches. Distal right lower lobe pulmonary artery demonstrates nonoccluding tiny linear pulmonary embolus extending into the posterior segmental branch. No other pulmonary embolus. Heart is not enlarged. Left arm PICC line terminates in the SVC. Aorta is mildly arteriosclerotic without aneurysm/dissection. Tiny right hilar calcified node. No pathologic mediastinal/hilar lymphadenopathy. Examination of the lung parenchyma demonstrates left lung base subsegmental atelectasis. Right lower lobe demonstrates scattered fibrosis/scarring. No effusion. Bony thorax demonstrates osteopenia, flowing osteophytes throughout the spine, remote-appearing T11-L1 anterior wedging deformities, and old right 8-9 rib fractures. Limited upper abdomen demonstrates moderate gallbladder sludge/gravel in the dependent portion. Also 9 mm left mid renal exophytic cyst. Impression: 1. Tiny distal right lower lobe/posterior segmental nonoccluding pulmonary embolus. 2. Left lung base subsegmental atelectasis. 3. Incidental gallbladder sludge/gravel, left renal cyst, and chronic bony findings.
[2019-07-01] MEDS: XARELTO 10 MG TABLET PO STA (15:19)
[2019-07-01 15:24] VITALS: BP 137/100; PULSE 72; O2SAT 96
== END 2019-07-01 15:40 | disposition home or self-care (01) ==
LOC: ED 11:59
DX: I49.1 Atrial premature depolarization (principal); I26.99 Other pulmonary embolism without acute cor pulmonale
CPT/HCPCS: 36415; 71046; 71260; 80048; 83735; 84100; 84443; 84484; 85025; 93005; 93041; 99284; J1642; A9270-GY

== ENCOUNTER 2019-07-25 17:54 | Emergency (ER) | payer MEDICARE ==
[2019-07-25 18:03] VITALS: BP 129/76; O2SAT 96
--- NOTE | 2019-07-25 18:11 | ERPHSYRPT ---
- History of Present Illness Time Seen by Provider: 07/25/19 18:09 Source: patient Exam Limitations: no limitations Patient Subjective Stated Complaint: pt here for a nose bleed for 30 mins,he states it also bleed this morning for 15 mins, pt arrived per [facility] Triage Nursing Assessment: pt alert, resp easy, has nose bleeding from both nostils, small amount, clamp and ice placed on pts nose Timing/Duration: today Severity: mild Associated Symptoms: denies symptoms Allergies/Adverse Reactions: atorvastatin calcium [From Lipitor] Adverse Reaction (Severe, Verified 07/25/19 18:03) Joint Aches Home Medications: Duloxetine HCl 30 mg [Cymbalta 30 MG Capsule] 60 mg PO DAILY 02/14/15 [ History] Furosemide [Lasix] 40 mg PO BID 02/14/15 [History] Gabapentin 400 mg [Neurontin 400 MG] 400 mg PO TID 02/14/15 [History] Glucosam/Chondr/Collagn/Hyalur [Glucosamine & Chondroitin Cap] 1 each PO DAILY 02/14/15 [History] Potassium Chloride 10 Meq Tab* [Klor Con 10 MEQ] 10 meq PO DAILY 02/14/15 [ History] Tamsulosin HCl 0.4 mg [Flomax 0.4 MG] 0.4 mg PO DAILY 02/14/15 [History] Insulin Aspart [NovoLOG Insulin] 1 units SQ TIDWM 02/25/18 [History] Aspirin 81 gm Chew [Baby Aspirin 81 mg Chew] 1 ea DAILY 07/25/19 [History] Clopidogrel Bisulfate [Clopidogrel] 1 ea DAILY 07/25/19 [History] Rivaroxaban [Xarelto] 15 mg DAILY 07/25/19 [History] Hx Tetanus, Diphtheria Vaccination/Date Given: No Hx Influenza Vaccination/Date Given: Yes Hx Pneumococcal Vaccination/Date Given: Yes Immunizations Up to Date: Yes Travel Risk - International Travel Have you traveled outside of the country in past 3 weeks: No Have you or anyone close to you been diagnosed with or: No Do your reside in a community with a known COVID-19 case?: Yes If Yes where:: [place] - Coronavirus Screening Has patient experienced Coronavirus symptoms: No - Review of Systems Constitutional: No Fever, No Chills Eyes: No Symptoms Ears, Nose, & Throat: No Symptoms, Epistaxis Respiratory: No Cough, No Dyspnea Cardiac: No Chest Pain, No Edema, No Syncope Abdominal/Gastrointestinal: No Abdominal Pain, No Nausea, No Vomiting, No Diarrhea Genitourinary Symptoms: No Dysuria Musculoskeletal: No Back Pain, No Neck Pain Skin: No Rash Neurological: No Dizziness, No Focal Weakness, No Sensory Changes Psychological: No Symptoms Endocrine: No Symptoms All Other Systems: Reviewed and Negative - Past Medical History Pertinent Past Medical History: Yes Neurological History: No Pertinent History ENT History: No Pertinent History Cardiac History: No Pertinent History Respiratory History: No Pertinent History Endocrine Medical History: Diabetes Type II Musculoskeletal History: Arthritis, Degenerative Disk Disease GI Medical History: No Pertinent History History: No Pertinent History Psycho-Social History: No Pertinent History Male Reproductive Disorders: Prostate Problems Other Medical History: chronic pain with pain pump of dilaudid - Past Surgical History Past Surgical History: Yes Neuro Surgical History: No Pertinent History Cardiac: No Pertinent History Respiratory: No Pertinent History Gastrointestinal: No Pertinent History Genitourinary: No Pertinent History Musculoskeletal: Orthopedic Surgery Male Surgical History: No Pertinent History Other Surgical History: L LEG SURGERY. R ARM SURGERY - Social History Smoking Status: Current every day smoker How long have you smoked: 43 Exposure to second hand smoke: Yes Drug Use: none Patient Lives Alone: Yes - Nursing Vital Signs Nursing Vital Signs: Initial Vital Signs Temperature 99.8 F 07/25/19 17:55 Respiratory Rate 22 07/25/19 17:55 Blood Pressure 129/76 07/25/19 17:55 O2 Sat by Pulse Oximetry 96 07/25/19 17:55 Pain Scale Pain Intensity 0 - Physical Exam General Appearance: no apparent distress, alert Eye Exam: PERRL/EOMI, eyes nml inspection Ears, Nose, Throat Exam: normal ENT inspection, TMs normal, pharynx normal, moist mucous membranes, other (anterior nasal blood clot. nasal packing in place ) Neck Exam: normal inspection, non-tender, supple, full range of motion Respiratory Exam: normal breath sounds, lungs clear, No respiratory distress Cardiovascular Exam: regular rate/rhythm, normal heart sounds, normal peripheral pulses Gastrointestinal/Abdomen Exam: soft, normal bowel sounds, No tenderness, No mass Back Exam: normal inspection, normal range of motion, No CVA tenderness, No vertebral tenderness Extremity Exam: normal inspection, normal range of motion, pelvis stable Neurologic Exam: alert, oriented x 3, cooperative, normal mood/affect, nml cerebellar function, nml station & gait, sensation nml, No motor deficits Skin Exam: normal color, warm, dry, No rash Lymphatic Exam: No adenopathy SpO2: 96 - Course Nursing assessment & vital signs reviewed: Yes - Progress Progress: improved Progress Note: 07/25/19 18:31 bleeding has stopped. Patient is advised to stop xarelto and plavix for 3 days Counseled pt/family regarding: diagnosis, need for follow-up - Departure Departure Disposition: Home Clinical Impression: Mild epistaxis, Acute anterior epistaxis Condition: Stable Critical Care Time: No Referrals: RIGOBERTO RUIZ [Primary Care Provider] - Follow Up with PCP/3 days Instructions: Nosebleeds (DC) Additional Instructions: Hold Plavix and Xarelto for 3 days. follow up with your physician on Saturday Discharge/Care Plan ZECHARIAH AGUSTIN was seen on 07/25/19 in the Emergency Room. The patient was counseled regarding Diagnosis,Lab results, Imaging studies, need for follow up and when to return to the Emergency Room. Prescriptions given: Discharge Note I have spoken with the patient and/or caregivers. I have explained the patient' s condition, diagnosis and treatment plan based on the information available to me at this time. I have answered the patient's and/or caregiver's questions and addressed any concerns. The patient and/or caregivers have as good understanding of the patient's diagnosis, condition and treatment plan as can be expected at this point. The vital signs have been stable. The patient's condition is stable and appropriate for discharge from the emergency department. The patient will pursue further outpatient evaluation with the primary care physician or other designated or consulting physician as outlined in the discharge instructions. The patient and/or caregivers are agreeable to this plan of care and follow-up instructions have been explained in detail. The patient and/or caregivers have received these instruction. The patient/and or caregivers are aware that any significant change in condition or worsening of symptoms should prompt an immediate return to this or the closest emergency department or call 911.
== END 2019-07-25 18:59 | disposition home or self-care (01) ==
LOC: ED 17:54
DX: R04.0 Epistaxis (principal); Z79.01 Long term (current) use of anticoagulants; E11.9 Type 2 diabetes mellitus without complications; Z79.4 Long term (current) use of insulin; Z72.0 Tobacco use; Z79.899 Other long term (current) drug therapy
CPT/HCPCS: 99283

== ENCOUNTER 2019-08-16 16:57 | Emergency (ER) | payer MEDICARE ==
[2019-08-16] MEDS ORDERED: Zofran 4 MG/2 ML VIAL IV ONE (17:38)
[2019-08-16] MEDS ORDERED: TYLENOL EXTRA STRENGTH 500 MG PO STA (17:38)
[2019-08-16] MEDS ORDERED: Sodium Chloride 0.9% 1000 ML 1,000 ML IV STA (17:42)
--- NOTE | 2019-08-16 17:44 | ERPHSYRPT ---
- History of Present Illness Time Seen by Provider: 08/16/19 17:30 Source: patient, EMS Patient Subjective Stated Complaint: Pt had called EMS to his residence due to "not feeling good for past week", refused to come to the ER and then he called his friends in [place] to come and get him and take him to [facility], pt's friend called the ambulance and they returned to his home and brought him here, pt's blood sugar in the ambulance was 408, oxygen was 92% and was placed on 2L NC Triage Nursing Assessment: Pt brought to the ER via EMS, pt uncooperative in answering questions, on 2L NC, febrile, tachycardic, denies cough, short of breath, bandaged right ankle and foot due to diabetic ulcers and he goes to the wound clinic, states that his chest hurts Physician History: 69years old male with history of diabetes mellitus, DVT/PE on Xarelto is brought in the ER via EMS with chief complaint of increased thirst and not feeling well for almost 1 week. Patient reports he has been thirsty all the time despite the fact he has been drinking a lot. He is also complaining of mild cough and shortness of breath which is more with activity but denies any chest pain. He denies any extremity swellings but does have ulcer on the right foot for which he is going to wound care clinic regularly. On arrival in the ER he has a fever of 100.7 but patient denies having fever at home but reports chills and malaise which are going on for 1 week. His blood sugar usually stays in 180s but currently prior to arrival was 408 by EMS. Patient is not a very good historian and history is limited. Timing/Duration: week(s) (1), gradual onset, worse Severity: moderate Associated Symptoms: shortness of breath, cough, malaise, weakness Allergies/Adverse Reactions: atorvastatin calcium [From Lipitor] Adverse Reaction (Severe, Verified 08/16/19 17:39) Joint Aches Home Medications: Duloxetine HCl 30 mg [Cymbalta 30 MG Capsule] 60 mg PO DAILY 02/14/15 [ History] Furosemide [Lasix] 40 mg PO BID 02/14/15 [History] Gabapentin 400 mg [Neurontin 400 MG] 400 mg PO TID 02/14/15 [History] Glucosam/Chondr/Collagn/Hyalur [Glucosamine & Chondroitin Cap] 1 each PO DAILY 02/14/15 [History] Potassium Chloride 10 Meq Tab* [Klor Con 10 MEQ] 10 meq PO DAILY 02/14/15 [ History] Tamsulosin HCl 0.4 mg [Flomax 0.4 MG] 0.4 mg PO DAILY 02/14/15 [History] Insulin Aspart [NovoLOG Insulin] 1 units SQ TIDWM 02/25/18 [History] Aspirin 81 gm Chew [Baby Aspirin 81 mg Chew] 1 ea DAILY 07/25/19 [History] Clopidogrel Bisulfate [Clopidogrel] 1 ea DAILY 07/25/19 [History] Rivaroxaban [Xarelto] 15 mg DAILY 07/25/19 [History] Hx Tetanus, Diphtheria Vaccination/Date Given: No Hx Influenza Vaccination/Date Given: Yes Hx Pneumococcal Vaccination/Date Given: Yes Travel Risk - International Travel Have you traveled outside of the country in past 3 weeks: No Have you or anyone close to you been diagnosed with or: No Do your reside in a community with a known COVID-19 case?: Yes If Yes where:: [place] - Coronavirus Screening Has patient experienced Coronavirus symptoms: Yes Symptoms experienced: fever(equal or > 100.4 F), respiratory symptoms ( i.e.[place],shortness of breath), muscle pain - Review of Systems Constitutional: Chills, Fatigue, Malaise, Weakness Eyes: No Symptoms Ears, Nose, & Throat: No Symptoms Respiratory: Cough, Dyspnea Cardiac: No Symptoms Abdominal/Gastrointestinal: No Symptoms Genitourinary Symptoms: No Symptoms Musculoskeletal: Myalgias Neurological: No Symptoms Psychological: No Symptoms Endocrine: No Symptoms Hematologic/Lymphatic: No Symptoms Immunological/Allergic: No Symptoms - Past Medical History Pertinent Past Medical History: Yes Neurological History: No Pertinent History ENT History: No Pertinent History Cardiac History: No Pertinent History Respiratory History: No Pertinent History Endocrine Medical History: Diabetes Type II Musculoskeletal History: Arthritis, Degenerative Disk Disease GI Medical History: No Pertinent History History: No Pertinent History Psycho-Social History: No Pertinent History Male Reproductive Disorders: Prostate Problems Other Medical History: chronic pain with pain pump of dilaudid - Past Surgical History Past Surgical History: Yes Neuro Surgical History: No Pertinent History Cardiac: No Pertinent History Respiratory: No Pertinent History Gastrointestinal: No Pertinent History Genitourinary: No Pertinent History Musculoskeletal: Orthopedic Surgery Male Surgical History: No Pertinent History Other Surgical History: L LEG SURGERY. R ARM SURGERY - Social History Smoking Status: Current every day smoker How long have you smoked: 43 Exposure to second hand smoke: Yes Drug Use: none Patient Lives Alone: Yes - Nursing Vital Signs Nursing Vital Signs: Initial Vital Signs Temperature 100.7 F 08/16/19 17:23 Pulse Rate 122 H 08/16/19 17:23 Respiratory Rate 30 H 08/16/19 17:23 Blood Pressure 110/74 08/16/19 17:23 O2 Sat by Pulse Oximetry 100 08/16/19 17:23 - Physical Exam General Appearance: no apparent distress Eye Exam: PERRL/EOMI, eyes nml inspection Ears, Nose, Throat Exam: normal ENT inspection, pharyngeal erythema Neck Exam: normal inspection, non-tender, supple, full range of motion Respiratory Exam: diminished breath sounds, crackles/rales, wheezing, No chest tenderness, No respiratory distress Cardiovascular Exam: normal heart sounds, tachycardia Gastrointestinal/Abdomen Exam: soft, No tenderness, No distention Back Exam: normal inspection Extremity Exam: swelling (}), No tenderness Neurologic Exam: alert ( ), oriented x 3, senior designer II-XII nml as tested, nml cerebellar function, No cooperative, No slurred speech Skin Exam: normal color, other (Superficial ulcer right lower lateral leg and right big toe medial aspect. With good granulation tissue. No sloughing or discharge. No erythema around the ulcers.) SpO2 Interpretation: O2 applied SpO2: 100 O2 Delivery: Nasal Cannula - Course Nursing assessment & vital signs reviewed: Yes EKG Interpreted by Me: RATE ([id number]), Left [place] Deviation, Left Bundle Branch Block , Ischemic ST-T changes (ST depression in inferolateral leads) Ordered Tests: Active Orders 24 hr Category Date Time Status Regulatory Specialist STAT Care 08/16/19 17:40 Active EKG-ER Only STAT Care 08/16/19 17:38 Active ISDH COVID Approval STAT Care 08/16/19 17:39 Completed IV Insertion STAT Care 08/16/19 17:38 Active Isolation, Initiate & Maintain Q4H Care 08/16/19 17:39 Active Isolation, Initiate & Maintain STAT Care 08/16/19 17:39 Active Pulse Oximetry (ED) ROUTINE Care 08/16/19 17:40 Active CHEST 1 VIEW (PORTABLE) Stat Exams 08/16/19 17:38 Completed BLOOD CULTURE Stat Lab 08/16/19 17:46 Received CBC W DIFF Stat Lab 08/16/19 16:15 Completed CMP Stat Lab 08/16/19 17:46 Completed LDH-LACTATE DEHYDROGENASE Stat Lab 08/16/19 17:46 Completed Lactic Acid Stat Lab 08/16/19 17:38 Completed TROPONIN Q3H Lab 08/16/19 17:15 Completed VENOUS BLOOD GAS Stat Lab 08/16/19 17:38 Completed Medication Summary Discontinued Medications Generic Name Dose Route Start Last Admin Trade Name Freq PRN Reason Stop Dose Admin Acetaminophen 1,000 mg 08/16/19 17:38 08/16/19 18:19 Tylenol Extra Strength 500 Mg PO 08/16/19 17:39 1,000 mg STAT STA Administration Acetaminophen Confirm 08/16/19 18:18 Tylenol Extra Strength 500 Mg Administered 08/16/19 18:19 Dose 1,000 mg .ROUTE .STK-MED ONE Aspirin 324 mg 08/16/19 18:44 08/16/19 19:08 Ecotrin 81 Mg PO 08/16/19 18:45 324 mg 1XONLY ONE Administration Aspirin Confirm 08/16/19 18:52 Baby Aspirin 81 Mg Chew Administered 08/16/19 18:53 Dose 324 mg .ROUTE .STK-MED ONE Sodium Chloride 1,000 mls @ 999 mls/hr 08/16/19 17:42 08/16/19 21:26 Sodium Chloride 0.9% 1000 Ml IV 08/16/19 18:42 Infused .Q1H1M STA Infusion Sodium Chloride Confirm 08/16/19 18:18 Sodium Chloride 0.9% 1000 Ml Administered 08/16/19 18:19 Dose 1,000 mls @ ud .ROUTE .STK-MED ONE Ceftriaxone Sodium/Dextrose 2 g in 50 mls @ 100 mls/hr 08/16/19 18:44 21:27 Rocephin 2 Gm-D5w 50ml Bag IV 08/16/19 19:13 Infused STAT STA Infusion Azithromycin 500 mg in 250 mls @ 250 mls/hr 08/16/19 18:44 08/16/19 21:25 Zithromax 500 Mg/ 250 Ml Nacl Premix IV 08/16/19 19:43 Infused STAT STA Infusion Azithromycin Confirm 08/16/19 18:53 Zithromax 500 Mg/ 250 Ml Nacl Premix Administered 08/16/19 18:54 Dose 500 mg in 250 mls @ ud IV .STK-MED ONE Ceftriaxone Sodium/Dextrose Confirm 08/16/19 18:53 Rocephin 2 Gm-D5w 50ml Bag Administered 08/16/19 18:54 Dose 2 g in 50 mls @ ud IV .STK-MED ONE Sodium Chloride 1,000 mls @ 125 mls/hr 08/16/19 20:30 08/16/19 20:52 Sodium Chloride 0.9% 1000 Ml IV 09/15/19 20:29 125 mls/hr .Q8H TITO Administration Sodium Chloride Confirm 08/16/19 20:50 Sodium Chloride 0.9% 1000 Ml Administered 08/16/19 20:51 Dose 1,000 mls @ ud .ROUTE .STK-MED ONE Insulin Aspart 10 unit 08/16/19 19:21 08/16/19 20:19 Novolog Insulin IV 08/16/19 19:22 Not Given STAT ONE Insulin Human Lispro 10 unit 08/16/19 19:59 08/16/19 20:18 Humalog IV 08/16/19 20:00 10 unit STAT ONE Administration Insulin Human Lispro Confirm 08/16/19 20:14 Humalog Administered 08/16/19 20:15 Dose 10 unit .ROUTE .STK-MED ONE Ondansetron HCl 4 mg 08/16/19 17:38 08/16/19 18:19 Zofran 4 Mg/2 Ml Vial IV 08/16/19 17:39 4 mg STAT ONE Administration Ondansetron HCl Confirm 08/16/19 18:17 Zofran 4 Mg/2 Ml Vial Administered 08/16/19 18:18 Dose 4 mg .ROUTE .STK-MED ONE Lab/Rad Data: Laboratory Result Diagrams 08/16/19 16:15 08/16/19 17:46 Laboratory Results 08/16/19 08/16/19 08/16/19 Range/Units 18:30 17:46 17:38 WBC (4.0-10.5) K/mm3 RBC (4.1-5.6) M/mm3 Hgb (12.5-18.0) gm/dl Hct (42-50) % MCV (78-100) fl MCH (26-32) pg MCHC (32-36) g/dl RDW (11.5-14.0) % Plt Count (150-450) K/mm3 MPV (7.5-11.0) fl Gran % (36.0-66.0) % Eos # (Auto) (0-0.5) Absolute Lymphs (auto) (1.0-4.6) Absolute Monos (auto) (0.0-1.3) Lymphocytes % (24.0-44.0) % Monocytes % (0.0-12.0) % Eosinophils % (0.00-5.0) % Basophils % (0.0-0.4) % Absolute Granulocytes (1.4-6.9) Basophils # (0-0.4) pO2/FiO2 Ratio 21.0 % VBG pH 7.40 (7.32-7.42) VBG pCO2 at Pat Temp 55 (42-55) mm/Hg VBG pO2 at Pat Temp 31 (25-40) mm/Hg VBG HCO3 34.1 H* (22-28) meq/L VBG O2 Sat (Antoine) 53.5 L (95-100) VBG Base Excess 7.5 H (-2.0-2.0) VBG Hemoglobin 10.1 VBG Carboxyhemoglobin 3.3 (0.0-6.9) % T HGB POC Potassium 5.2 H (3.5-5.1) Sodium 134 L (137-145) mmol/L Potassium 4.9 (3.5-5.1) mmol/L Chloride 92 L (98-107) mmol/L Carbon Dioxide 30 (22-30) mmol/L Anion Gap 17.2 H (5-15) MEQ/L BUN 25 H (9-20) mg/dL Creatinine 1.05 (0.66-1.25) mg/dL Estimated GFR > 60.0 ML/MIN Glucose 475 H (74-106) mg/dL Lactic Acid 2.7 H (0.4-2.0) Calcium 9.0 (8.4-10.2) mg/dL Total Bilirubin 0.70 (0.2-1.3) mg/dL AST 21 (17-59) U/L ALT 13 (0-50) U/L Alkaline Phosphatase 116 (38-126) U/L Lactate Dehydrogenase 120 (120-246) U/L Troponin I (0.000-0.034) ng/mL Serum Total Protein 7.5 (6.3-8.2) g/dL Albumin 3.5 (3.5-5.0) g/dL Influenza Type A Ag NEGATIVE (NEGATIVE) Influenza Type B Ag NEGATIVE (NEGATIVE) RSV (PCR) NEGATIVE (Negative) 08/16/19 08/16/19 Range/Units 17:15 16:15 WBC 7.4 (4.0-10.5) K/mm3 RBC 3.99 L (4.1-5.6) M/mm3 Hgb 10.4 L (12.5-18.0) gm/dl Hct 33.3 L (42-50) % MCV 83.5 (78-100) fl MCH 26.1 (26-32) pg MCHC 31.2 L (32-36) g/dl RDW 14.9 H (11.5-14.0) % Plt Count 219 (150-450) K/mm3 MPV 11.8 H (7.5-11.0) fl Gran % 86.3 H (36.0-66.0) % Eos # (Auto) 0.02 (0-0.5) Absolute Lymphs (auto) 0.51 L (1.0-4.6) Absolute Monos (auto) 0.47 (0.0-1.3) Lymphocytes % 6.9 L (24.0-44.0) % Monocytes % 6.4 (0.0-12.0) % Eosinophils % 0.3 (0.00-5.0) % Basophils % 0.1 (0.0-0.4) % Absolute Granulocytes 6.36 (1.4-6.9) Basophils # 0.01 (0-0.4) pO2/FiO2 Ratio % VBG pH (7.32-7.42) VBG pCO2 at Pat Temp (42-55) mm/Hg VBG pO2 at Pat Temp (25-40) mm/Hg VBG HCO3 (22-28) meq/L VBG O2 Sat (Antoine) (95-100) VBG Base Excess (-2.0-2.0) VBG Hemoglobin VBG Carboxyhemoglobin (0.0-6.9) % T HGB POC Potassium (3.5-5.1) Sodium (137-145) mmol/L Potassium (3.5-5.1) mmol/L Chloride (98-107) mmol/L Carbon Dioxide (22-30) mmol/L Anion Gap (5-15) MEQ/L BUN (9-20) mg/dL Creatinine (0.66-1.25) mg/dL Estimated GFR ML/MIN Glucose (74-106) mg/dL Lactic Acid (0.4-2.0) Calcium (8.4-10.2) mg/dL Total Bilirubin (0.2-1.3) mg/dL AST (17-59) U/L ALT (0-50) U/L Alkaline Phosphatase (38-126) U/L Lactate Dehydrogenase (120-246) U/L Troponin I 0.245 H* (0.000-0.034) ng/mL Serum Total Protein (6.3-8.2) g/dL Albumin (3.5-5.0) g/dL Influenza Type A Ag (NEGATIVE) Influenza Type B Ag (NEGATIVE) RSV (PCR) (Negative) - Progress Progress: improved, re-examined Progress Note: 08/16/19 19:23 69 years old is evaluated for hyperglycemia and cough with shortness of breath. EKG did not show any acute ST elevation but has some depression and inferolateral leads. Is given aspirin. Chest x-ray showed bilateral pneumonia and started on antibiotics. COVID testing is pending at present. His initial troponin are 0.245. He also has hyperglycemia with blood sugar in 470s but normal pH and bicarb, does not suggest DKA but hyperglycemia and given fluid bolus followed by insulin. Discussed with Dr. Vizcaino, recommended transfer to facility with cardiology services. Discussed with Patito rios and patient is accepted for transfer. Discussed with .: [place], Other () Counseled pt/family regarding: lab results, diagnosis, rad results - Departure Departure Disposition: Transfer Clinical Impression: NSTEMI (non-ST elevated myocardial infarction), Hyperglycemia Sepsis Qualifiers: Sepsis type: sepsis due to unspecified organism Sepsis acute organ dysfunction status: unspecified Qualified Code(s): A41.9 - Sepsis, unspecified organism Pneumonia Qualifiers: Pneumonia type: due to unspecified organism Laterality: bilateral Lung location : lower lobe of lung Qualified Code(s): J18.9 - Pneumonia, unspecified organism Wound of right lower extremity Qualifiers: Encounter type: initial encounter Qualified Code(s): S81.801A - Unspecified open wound, right lower leg, initial encounter Condition: Fair Critical Care Time: Yes Critical Care Time(excluding separately billable procedures): Critical 30-74 mins Referrals: RIGOBERTO RUIZ [Primary Care Provider] -
[2019-08-16 17:45] LABS: Lactic Acid 2.7 (0.4-2.0); VBG BASE EXCESS 7.5 (-2.0-2.0); VBG CARBOXYHEMOGLOBIN 3.3 % T HGB (0.0-6.9); VBG HCO3- 34.1 meq/L (22-28); VBG HEMOGLOBIN 10.1; VBG O2 SATURATION 53.5 (95-100); VBG POTASSIUM 5.2 (3.5-5.1); VBG pH 7.4 (7.32-7.42)
[2019-08-16 17:58] LABS: ALBUMIN 3.5 g/dL (3.5-5.0); ALKALINE PHOSPHATASE 116 U/L (38-126); ANION GAP 17.2 MEQ/L (5-15); BLOOD UREA NITROGEN 25 mg/dL (9-20); CHLORIDE 92 mmol/L (98-107); Carbon Dioxide 30 mmol/L (22-30); Creatinine 1 1.05 mg/dL (0.66-1.25); Glucose 475 mg/dL (74-106); LDH-LACTATE DEHYDROGENASE 120 U/L (120-246); Potassium 4.9 mmol/L (3.5-5.1); SGOT/AST 21 U/L (17-59); SGPT/ALT 13 U/L (0-50); SODIUM 134 mmol/L (137-145); Total Protein 7.5 g/dL (6.3-8.2)
[2019-08-16 17:59] LABS: Absolute Neutrophil Ct (ANC) 6.36 (1.4-6.9); BASOPHIL % 0.1 % (0.0-0.4); Basophil (Absolute #) 0.01 (0-0.4); Eosinophil % 0.3 % (0.00-5.0); Eosinophil (Absolute #) 0.02 (0-0.5); Hematocrit 33.3 % (42-50); Hemoglobin 10.4 gm/dl (12.5-18.0); Lymphocyte (Absolute #) 0.51 (1.0-4.6); Lymphocytes % 6.9 % (24.0-44.0); Mean Cell Volume 83.5 fl (78-100); Mean Corpuscular Hemoglobin 26.1 pg (26-32); Mean Corpuscular Hgb Concent. 31.2 g/dl (32-36); Mean Platelet Volume 11.8 fl (7.5-11.0); Monocyte (Absolute #) 0.47 (0.0-1.3); Monocytes % 6.4 % (0.0-12.0); Neutrophil % 86.3 % (36.0-66.0); Platelet Count 219 K/mm3 (150-450); Red Blood Count 3.99 M/mm3 (4.1-5.6); Red Cell Distribution Width 14.9 % (11.5-14.0); White Blood Count 7.4 K/mm3 (4.0-10.5)
[2019-08-16 18:16] VITALS: O2SAT 100
[2019-08-16] MEDS ORDERED: Zofran 4 MG/2 ML VIAL ONE (18:17)
[2019-08-16] MEDS ORDERED: TYLENOL EXTRA STRENGTH 500 MG ONE (18:18)
[2019-08-16] MEDS ORDERED: Sodium Chloride 0.9% 1000 ML 1,000 ML ONE ×2 (18:18→20:50)
[2019-08-16] MEDS ORDERED: ROCEPHIN 2 Gm-D5w 50ML BAG** 2 G/50 ML IVPB IV STA (18:44)
[2019-08-16] MEDS ORDERED: Zithromax 500 MG/ 250 ML NaCl Premix 500 MG/250 ML IVPB IV STA (18:44)
[2019-08-16] MEDS ORDERED: ECOTRIN 81 MG PO ONE (18:44)
[2019-08-16] MEDS ORDERED: BABY ASPIRIN 81 MG CHEW ONE (18:52)
[2019-08-16] MEDS ORDERED: ROCEPHIN 2 Gm-D5w 50ML BAG** 2 G/50 ML IVPB IV ONE (18:53)
[2019-08-16] MEDS ORDERED: Zithromax 500 MG/ 250 ML NaCl Premix 500 MG/250 ML IVPB IV ONE (18:53)
[2019-08-16] MEDS ORDERED: HUMALOG IV ONE (19:59)
--- NOTE | 2019-08-16 20:05 | XRAY ---
Indication: Cough and short of breath. Comparison: July 01, 2019. Portable chest again demonstrates left base infiltrate/atelectasis with new right base infiltrate/atelectasis. Remaining heart and upper lungs unremarkable. Bony thorax intact again with mild degenerative changes. Comment: Preliminary interpretation was made by [facility]. No critical discrepancy.
[2019-08-16 20:12] LABS: INFLUENZA A NEGATIVE (NEGATIVE); INFLUENZA B NEGATIVE (NEGATIVE); RESPIRATORY SYNCTIAL VIRUS NEGATIVE (Negative)
[2019-08-16] MEDS: NovoLOG Insulin IV ONE ×2 (20:13→20:19)
[2019-08-16] MEDS ORDERED: HUMALOG ONE (20:14)
[2019-08-16 20:27] VITALS: BP 98/59
[2019-08-16] MEDS ORDERED: Sodium Chloride 0.9% 1000 ML 1,000 ML IV SCH (20:30)
[2019-08-16 21:30] VITALS: PULSE 102
== END 2019-08-16 21:30 | disposition short-term general hospital (02) ==
LOC: ED 16:57
DX: I21.4 Non-ST elevation (NSTEMI) myocardial infarction (principal); A41.9 Sepsis, unspecified organism; J18.9 Pneumonia, unspecified organism; S81.801A Unspecified open wound, right lower leg, initial encounter; E11.65 Type 2 diabetes mellitus with hyperglycemia; Z72.0 Tobacco use; Z86.718 Personal history of other venous thrombosis and embolism; Z86.711 Personal history of pulmonary embolism; Z79.01 Long term (current) use of anticoagulants; Z79.899 Other long term (current) drug therapy; R06.02 Shortness of breath
CPT/HCPCS: 36000; 36415; 71045; 80053; 82805; 83605; 83615; 84484; 85025; 86140; 87040; 87631; 93005; 93041; 94760; 96365; 96368; 96374; 96375; 99285; 99291; U0001; 99000; J0456; J0696; J1817; J2405; A9270-GY